=== PATIENT | female | born 1970 | race Caucasian/White ===

== ENCOUNTER → 2021-12-06 | Day surgery (SDC) | payer MEDICAID ==
[~2021-12-06] MED LIST: Ketamine 200 MG/20 ML MDV ONE; Lactated Ringers 1,000 ML IV SCH; Propofol 200 MG/20 ML SDV ONE; fentaNYL 100 MCG/2 ML SDV ONE
== END ==
LOC: CC.SDS 13:00
PROVIDERS: ATTEND Family Medicine
DX: Z12.11 Encounter for screening for malignant neoplasm of colon (principal); F32.A Depression, unspecified; K04.7 Periapical abscess without sinus; E78.5 Hyperlipidemia, unspecified; D50.9 Iron deficiency anemia, unspecified; L85.8 Other specified epidermal thickening; E04.1 Nontoxic single thyroid nodule; R03.0 Elevated blood-pressure reading, without diagnosis of hypertension; Z79.899 Other long term (current) drug therapy
CPT/HCPCS: J2704; J3010; J7120